=== PATIENT | female | born 1945 | race Native Hawaiian/Other Pacific Islander ===

== ENCOUNTER 2016-09-02 10:58 | Outpatient (CLI) | payer OTHER | END 2016-09-02 11:58 | disposition home or self-care (01) | LOC: RAD 10:58 | DX: M54.5 Low back pain (principal) ==

== ENCOUNTER 2016-11-05 02:00 | Observation (INO) | payer OTHER ==
[2016-11-05] VITALS (10 sets, daily range): BP systolic 114–183; BP diastolic 57–93; TEMP 97.8–98.7; Ht 162.6 cm; Wt 58.7 kg
[~2016-11-05] VITALS: Ht 162.6 cm; Wt 58.7 kg
[2016-11-05 02:33] LABS: PLATELET COUNT 361 K/uL (152-353)
[2016-11-05] MEDS ORDERED: OMEP20CA PO (02:36)
[2016-11-05] MEDS ORDERED: AMLO2.5T PO (02:37)
[2016-11-05] MEDS ORDERED: TRIA37.541 PO (02:37)
[2016-11-05] MEDS ORDERED: ESTR1TAB13 PO (02:38)
[2016-11-05] MEDS ORDERED: TRAM50TA PO (02:38)
[2016-11-05] MEDS ORDERED: METHO2.5 PO (02:39)
[2016-11-05] MEDS ORDERED: CYCL10TA35 PO (02:40)
[2016-11-05] MEDS ORDERED: CLON0.5T36 PO (02:40)
[2016-11-05] MEDS ORDERED: ADLT ASA LOW81 MG PO (02:41)
[2016-11-05] MEDS ORDERED: FOLI1TAB26 PO (02:41)
[2016-11-05] MEDS ORDERED: CETI10TA PO (02:42)
[2016-11-05] MEDS ORDERED: CALCIUM + D PO (02:43)
[2016-11-05] MEDS ORDERED: MULTIVITAMI1 PO (02:44)
[2016-11-05 10:47] LABS: PLATELET COUNT 341 K/uL (152-353)
[2016-11-05 11:28] LABS: POTASSIUM 3.8 mmol/L (3.6-5.2); SODIUM 142 mmol/L (136-145)
[2016-11-06] VITALS: BP 93/54; TEMP 97.7
[2016-11-06 04:00] VITALS: BP 98/55; TEMP 97.4
[2016-11-06 05:09] LABS: PLATELET COUNT 331 K/uL (152-353)
[2016-11-06 05:32] LABS: POTASSIUM 3.6 mmol/L (3.6-5.2); SODIUM 138 mmol/L (136-145)
[2016-11-06 08:00] VITALS: BP 93/49; TEMP 97.9
[2016-11-06 12:10] VITALS: BP 117/70; TEMP 97.6
[2016-11-06 16:18] VITALS: BP 121/73; TEMP 98.3
== END 2016-11-06 17:10 | disposition home or self-care (01) ==
LOC: ED 02:00 → MED/SURG 03:20
PROVIDERS: Emergency Medicine; ADMIT Emergency Medicine
DX: I48.0 Paroxysmal atrial fibrillation (principal); R07.89 Other chest pain; R00.2 Palpitations; I10 Essential (primary) hypertension; K21.9 Gastro-esophageal reflux disease without esophagitis; E87.6 Hypokalemia; E83.42 Hypomagnesemia
CPT/HCPCS: 36415; 80053; 82550; 83036; 83735; 83880; 84443; 84484; 85027; 85610; 85730; 93005; 94760; 96361; 96365; 96366; 96372; 96374; 99220; 99281; 99284; G0378; J1650; J2060; J2270; J3490

== ENCOUNTER 2016-11-11 07:58 | Outpatient (CLI) | payer OTHER ==
[~2016-11-11 07:58] MED LIST: ADLT ASA LOW81 MG PO; AMLO2.5T PO; CALCIUM + D PO; CETI10TA PO; CLON0.5T36 PO; CYCL10TA35 PO; ESTR1TAB13 PO; FOLI1TAB26 PO; METHO2.5 PO; MULTIVITAMI1 PO; OMEP20CA PO; TRAM50TA PO; TRIA37.541 PO
== END 2016-11-11 19:44 | disposition home or self-care (01) ==
LOC: NM 07:58
DX: I48.91 Unspecified atrial fibrillation (principal); I10 Essential (primary) hypertension
CPT/HCPCS: A9500

== ENCOUNTER 2016-11-19 09:15 | Outpatient (CLI) | payer OTHER ==
[2016-11-19 10:43] LABS: POTASSIUM 3.3 mmol/L (3.6-5.2)
== END 2016-11-19 10:30 | disposition home or self-care (01) ==
LOC: LABW 09:15
PROVIDERS: Internal Medicine Cardiovascular Disease
DX: I48.0 Paroxysmal atrial fibrillation (principal); Z79.899 Other long term (current) drug therapy; Z51.81 Encounter for therapeutic drug level monitoring
CPT/HCPCS: 36415; 80048; 80061

== ENCOUNTER 2017-02-14 11:32 | Outpatient (CLI) | payer OTHER | END 2017-02-14 12:35 | disposition home or self-care (01) | LOC: RAD 11:32 | DX: M25.511 Pain in right shoulder (principal) ==

== ENCOUNTER 2017-10-06 11:11 | Outpatient (CLI) | payer OTHER | END 2017-10-06 22:05 | disposition home or self-care (01) | LOC: RAD 11:11 | DX: M06.09 Rheumatoid arthritis without rheumatoid factor, multiple sites (principal); Z79.899 Other long term (current) drug therapy; Z51.81 Encounter for therapeutic drug level monitoring ==

== ENCOUNTER 2017-10-31 06:36 | Inpatient (IN) | payer OTHER ==
[~2017-10-31] VITALS: Ht 162.6 cm; Wt 58.7 kg
[2017-10-31] VITALS (37 sets, daily range): BP systolic 81–178; BP diastolic 53–104; TEMP 97.7–99; Ht 162.6 cm; Wt 58.7 kg
[2017-10-31 07:13] LABS: PLATELET COUNT 317 K/uL (152-353)
[2017-10-31 07:22] LABS: POTASSIUM 3.1 mmol/L (3.6-5.2)
[2017-10-31 07:58] LABS: PARTIAL THROMBOPLASTIN TIME 26.2 SECONDS (24.5-33.6)
[2017-10-31] MEDS ORDERED: CARTIA XT180 MG/24 PO (16:24)
[2017-10-31] MEDS ORDERED: CLOPIDOGREL75 MG PO (16:28)
[2017-10-31] MEDS ORDERED: TRAM50TA PO (16:29)
[2017-10-31] MEDS ORDERED: LORA10TA3 PO (16:30)
--- NOTE | 2017-10-31 17:06 | NUR ---
@ 1135 PT ARRIVED TO PCU BED #1 FROM ER, REPORT RECEIVED FROM CAMILA RN, IV TO LEFT AC CLEAN, DRY AND INTACT, CARDIZEM DRIP @ 10ML/HR TO KEEP PULSE LESS THAN 100BPM, IV TO RIGHT WRIST CLEAN DRY AND INTACT, INFUSING NORMAL SALINE @ 75ML/HR AND PARTIAL BAG OF ROCEPHIN THAT WAS STARTED IN ER. PT IS AWAKE, ALERT, AND RESPONSIVE TO ALL QUESTIONS, PT C/O PAIN TO RIGHT HIP AREA FROM FALL EARLIER THIS MORNING AT HOME, NO BRUISING NOTED TO RIGHT BUTTOCK/HIP AREA. APPLIED ELECTRODES TO PATIENT'S CHEST, HELPED PT GET COMFORTABLE IN BED, VITAL SIGNS DONE, WITHIN NORMAL LIMITS. WILL CONTINUE TO MONITOR.
[2017-11-01] VITALS (28 sets, daily range): BP systolic 102–140; BP diastolic 59–90; TEMP 99.2–100.3
--- NOTE | 2017-11-01 01:01 | NUR ---
[id number] ASSESSMENT COMPLETE. PT DENIES PAIN AT THIS TIME. CARDIZEM GTT IS AT 4 MG/ HR, PT HAS DONE WELL WITH THIS DOSAGE SINCE 170, I AM DECREASING IT TO CARDIZEM 3 MG PER HOUR. WILL MONITOR PT CLOSELY FOR CHANGES IN HR KEEP HR < 100, BP CHANGES , AND RHYTHM OF HEART, WHICH IS NOW SINUS RHYTHM. SH
--- NOTE | 2017-11-01 01:11 | NUR ---
10-01-171999 BLOOD DRAWN X 1 ATTEMPT, FROM RIGHT AC, FOR TROPONIN AND CPK FOR THE THIRD CE TEST. PT TOLERATED WELL. SH
--- NOTE | 2017-11-01 02:14 | NUR ---
10-01-17 2200 PT CONT TO DO WELL, NSR NOTED ON RESEARCH ASSISTANT PROFESSOR, HR REMAINS BELOW 100, HAS BEEN IN THE 60'S AND BP REMAINS AROUND THE SAME IT HAS BEEN RUNNING. CARDIZEM GTT TURNED DOWN FROM 3 MG / HR TO 2 MG/HR. WILL CONT TO MONITOR. SH
--- NOTE | 2017-11-01 02:23 | NUR ---
10-01-17 0707 PT UNABLE TO SLEEP AND ALSO, SAYS THAT HER THROAT IS SORE. NURSE CONTACTED DR. SIM IN THE ER FOR NEW ORDERS FOLLOWS. CLOROSEPTIC THROAT SPRAY AND BENEDRYL 25 MG PO FOR HS (PT SAYS SHE TAKES BENEDRYL TO HELP HER SLEEP AT HOME SOMETIMES). NURSE WILL CONT TO MONITOR. SH
--- NOTE | 2017-11-01 02:27 | NUR ---
10-01-[address] SIM ON TROPONIN LEVEL FOR PT. IT IS UP SLIGHTLY, SEE CHART/ LABS. ONLY NEW ORDER FOR PT IS TO OBTAIN AN EKG IN THE MORNING. SH
--- NOTE | 2017-11-01 02:29 | NUR ---
10-02-17 0200 PT CONT TO STAY IN NSR, HR < 100 AND SHE DENIES CHEST PAIN STILL. SHE DOES SAY THAT SHE HAS A HX OF RIGHT ROTATOR CUFF PAIN, HAS TO GET SHOTS IN IT ABOUT Q 6 MONTHS. SHE SAYS THAT HER PAIN IN HER ROTATOR CUFF AREA IS BETTER NOW THAN IT WAS PRIOR TO HER TRAMADOL. (PT SAYS THAT SHE TAKES TRAMADOL 50 MG TAB PO 3 X DAY , NOT 100 MG . CLARIFICATION ORDER WRITEN. SH
--- NOTE | 2017-11-01 02:41 | NUR ---
10-02-17 0245 PT CONT TO DO WELL, NSR NOTED, HR < 100 CARDIZEM GTT PLACED ON 1 MG/ HR. PT DENIES PAIN. SH
--- NOTE | 2017-11-01 03:52 | NUR ---
11-01-17 0355 PT REMAINS IN NSR, HR 66, NO DISTRESS NOTED. SHE IS RECEIVING CARDIZEM 1 MG / HR AT THIS TIME AND DOING WELL. EARLIER, PT ASSISTED TO BSC TO VOID LARGE AMOUNT OF URINE. PT PUT TOILET TISSUE INTO THE BSC, SO NURSE WAS UNABLE TO MEASURE. NO BRUISING NOTED ON RIGHT HIP AT THIS TIME. SHE POINTED TO THE AREA THAT IS SORE, WHICH IS ABOUT THE ISCHIAL SPINE ON RIGHT SIDE. NURSE WILL CONT TO ANDREY VIGIL
--- NOTE | 2017-11-01 06:40 | NUR ---
11-01-17 3887 EKG DONE BY RESPIRATORY DEPT, [facility], SHOWS NSR. SH
--- NOTE | 2017-11-01 06:41 | NUR ---
10-02-17 5414 PT EYES CLOSED, RESP EVEN, UNLABORED. NO DISTRESS NOTED. PT REMIANS IN NSR WITH CARDIZEM GTT AT 1 MG/HR. NURSE WILL CONT TO MONITOR PT. SH
--- NOTE | 2017-11-01 07:55 | NUR ---
SPOKE TO CAYLA ANROLD ABOUT PT'S COUGH AND ELEVATED TEMP. NEW ORDERS RECEIVED.
--- NOTE | 2017-11-01 08:05 | NUR ---
DAUGHTER CALLED TO SPEAK WITH PT.
[2017-11-01 08:18] LABS: PLATELET COUNT 303 K/uL (152-353)
[2017-11-01 08:20] LABS: POTASSIUM 3.1 mmol/L (3.6-5.2)
--- NOTE | 2017-11-01 08:40 | NUR ---
VISITOR AT BEDSIDE.
--- NOTE | 2017-11-01 09:13 | NUR ---
XRAY AT BEDSIDE.
--- NOTE | 2017-11-01 09:15 | NUR ---
CAYLA ARNOLD HERE TO EXAMINE PATIENT.
--- NOTE | 2017-11-01 12:03 | NUR ---
MERLYN FROM [facility] HERE TO TAKE PATIENT FOR VQ SCAN.
--- NOTE | 2017-11-01 13:00 | NUR ---
RETURNED FROM VQ SCAN VIA WHEELCHAIR. NAD NOTED. PLACED BACK ON FLUIDS AND MONITORS.
[2017-11-01] MEDS ORDERED: XARELTO20 MG PO (13:38)
[2017-11-01] MEDS ORDERED: METOPROLOL25 M1 PO (13:44)
--- NOTE | 2017-11-01 13:50 | NUR ---
FAMILY AND MOLD WORKER AT BEDSIDE.
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
== END 2017-11-01 16:27 | disposition home or self-care (01) | DRG 309 ==
LOC: ED 06:36 → ICU 10:30
PROVIDERS: Specialist; ADMIT Family Medicine
DX: I48.0 Paroxysmal atrial fibrillation (principal); E87.1 Hypo-osmolality and hyponatremia; I10 Essential (primary) hypertension; E78.4 Other hyperlipidemia; K21.9 Gastro-esophageal reflux disease without esophagitis; M15.8 Other polyosteoarthritis; D72.828 Other elevated white blood cell count; E87.8 Other disorders of electrolyte and fluid balance, not elsewhere classified; E87.6 Hypokalemia
CPT/HCPCS: 36415; 80053; 82550; 82553; 83735; 84100; 84484; 85027; 85379; 85610; 85730; 93005; 94760; 96361; 96365; 96372; 96375; 96376; 99285; A9540; A9567; J0696; J1650; J2060; J3490

== ENCOUNTER 2018-03-28 09:42 | Outpatient (CLI) | payer OTHER ==
[~2018-03-28 09:42] MED LIST changes: +CARTIA XT180 MG/24 PO; +CLOPIDOGREL75 MG PO; +LORA10TA3 PO; +METOPROLOL25 M1 PO; +XARELTO20 MG PO
[2018-03-28 09:59] LABS: PLATELET COUNT 364 K/uL (152-353)
[2018-03-28 10:09] LABS: POTASSIUM 3.5 mmol/L (3.6-5.2)
== END 2018-03-28 22:40 | disposition home or self-care (01) ==
LOC: LABW 09:42
DX: M06.09 Rheumatoid arthritis without rheumatoid factor, multiple sites (principal); M15.1 Heberden's nodes (with arthropathy); M15.2 Bouchard's nodes (with arthropathy); Z79.891 Long term (current) use of opiate analgesic
CPT/HCPCS: 36415; 80053; 85027; 86140

== ENCOUNTER 2018-06-26 10:35 | Outpatient (CLI) | payer OTHER | END 2018-06-26 20:24 | disposition home or self-care (01) | LOC: RAD 10:35 | DX: M06.09 Rheumatoid arthritis without rheumatoid factor, multiple sites (principal) ==

== ENCOUNTER 2018-07-24 09:54 | Outpatient (CLI) | payer OTHER | END 2018-07-24 20:50 | disposition home or self-care (01) | LOC: RAD 09:54 | DX: M85.89 Other specified disorders of bone density and structure, multiple sites (principal) ==

== ENCOUNTER 2018-10-16 11:32 | Outpatient (CLI) | payer OTHER | END 2018-10-16 19:29 | disposition home or self-care (01) | LOC: RAD 11:32 | DX: M25.519 Pain in unspecified shoulder (principal); M79.641 Pain in right hand ==

== ENCOUNTER 2018-12-18 10:56 | Outpatient (CLI) | payer OTHER | END 2018-12-18 23:37 | disposition home or self-care (01) | LOC: RAD 10:56 | DX: M06.09 Rheumatoid arthritis without rheumatoid factor, multiple sites (principal) ==

== ENCOUNTER 2019-03-19 10:26 | Outpatient (CLI) | payer OTHER | END 2019-03-19 19:48 | disposition home or self-care (01) | LOC: LABW 10:26 | DX: M06.09 Rheumatoid arthritis without rheumatoid factor, multiple sites (principal); M15.2 Bouchard's nodes (with arthropathy); Z79.899 Other long term (current) drug therapy | CPT/HCPCS: 36415; 85651; 86140 ==

== ENCOUNTER 2019-06-07 11:37 | Outpatient (CLI) | payer OTHER | END 2019-06-07 19:30 | disposition home or self-care (01) | LOC: LAB 11:37 | DX: J20.9 Acute bronchitis, unspecified (principal); R05 Cough | CPT/HCPCS: 87070; 87205 ==

== ENCOUNTER 2019-07-31 15:09 | Outpatient (CLI) | payer OTHER | END 2019-07-31 20:12 | disposition home or self-care (01) | LOC: RESP 15:09 | DX: R68.89 Other general symptoms and signs (principal); R07.89 Other chest pain; I10 Essential (primary) hypertension; I48.0 Paroxysmal atrial fibrillation; R01.2 Other cardiac sounds | CPT/HCPCS: 93306 ==

== ENCOUNTER 2019-08-07 09:06 | Outpatient (CLI) | payer OTHER ==
[~2019-08-07] VITALS: Ht 162.6 cm; Wt 59.4 kg
== END 2019-08-07 21:57 | disposition home or self-care (01) ==
LOC: NM 09:06
DX: R68.89 Other general symptoms and signs (principal); R07.89 Other chest pain; I10 Essential (primary) hypertension; I48.0 Paroxysmal atrial fibrillation; R01.2 Other cardiac sounds
CPT/HCPCS: A9500; J2785

== ENCOUNTER 2019-12-13 07:48 | Outpatient (CLI) | payer OTHER | END 2019-12-13 21:34 | disposition home or self-care (01) | LOC: LAB 07:48 | DX: Z20.828 Contact with and (suspected) exposure to other viral communicable diseases (principal) | CPT/HCPCS: 87635; G2023; U0002 ==

== ENCOUNTER 2020-01-18 11:03 | Outpatient (CLI) | payer OTHER | END 2020-01-18 20:00 | disposition home or self-care (01) | LOC: RAD 11:03 | DX: M25.551 Pain in right hip (principal) ==

== ENCOUNTER 2020-07-09 14:30 | Outpatient (CLI) | payer OTHER ==
[2020-07-09 15:27] LABS: PLATELET COUNT 309 K/uL (152-353)
[2020-07-09 15:37] LABS: POTASSIUM 3.2 mmol/L (3.6-5.2)
== END 2020-07-09 23:58 | disposition home or self-care (01) ==
LOC: LABW 14:30
PROVIDERS: ATTEND Internal Medicine
DX: I12.9 Hypertensive chronic kidney disease with stage 1 through stage 4 chronic kidney disease, or unspecified chronic kidney disease (principal); N18.30 Chronic kidney disease, stage 3 unspecified
CPT/HCPCS: 36415; 80048; 82040; 84100; 84550; 85027; 86225

== ENCOUNTER 2020-09-10 14:12 | Outpatient (CLI) | payer OTHER | END 2020-09-10 22:09 | disposition home or self-care (01) | LOC: RAD 14:12 | PROVIDERS: ATTEND Nurse Practitioner Family | DX: K21.9 Gastro-esophageal reflux disease without esophagitis (principal); M06.09 Rheumatoid arthritis without rheumatoid factor, multiple sites; M19.041 Primary osteoarthritis, right hand; M19.042 Primary osteoarthritis, left hand; Z79.899 Other long term (current) drug therapy ==

== ENCOUNTER 2020-12-29 08:44 | Outpatient (CLI) | payer OTHER | END 2020-12-29 21:20 | disposition home or self-care (01) | LOC: RAD 08:44 | PROVIDERS: ATTEND Internal Medicine Rheumatology | DX: M06.09 Rheumatoid arthritis without rheumatoid factor, multiple sites (principal); M70.61 Trochanteric bursitis, right hip; M85.89 Other specified disorders of bone density and structure, multiple sites; Z79.891 Long term (current) use of opiate analgesic; Z79.899 Other long term (current) drug therapy ==

== ENCOUNTER 2021-11-09 10:50 | Outpatient (CLI) | payer OTHER | END 2021-11-09 18:59 | disposition home or self-care (01) | LOC: RAD 10:50 | PROVIDERS: ATTEND Nurse Practitioner Family | DX: M06.09 Rheumatoid arthritis without rheumatoid factor, multiple sites (principal); M15.1 Heberden's nodes (with arthropathy); M79.671 Pain in right foot; M79.672 Pain in left foot; Z79.899 Other long term (current) drug therapy ==

== ENCOUNTER 2021-12-11 17:17 | Observation (INO) | payer OTHER ==
[2021-12-11] VITALS (8 sets, daily range): BP systolic 118–154; BP diastolic 56–83; TEMP 98–100.1; Ht 162.6 cm; Wt 56.7 kg
[~2021-12-11] VITALS: Ht 162.6 cm; Wt 56.7 kg
[2021-12-11 18:07] LABS: PLATELET COUNT 335 K/uL (152-353)
[2021-12-11 18:38] LABS: POTASSIUM 3.2 mmol/L (3.6-5.2)
[2021-12-11] MEDS ORDERED: LISI10TA11 PO (22:49)
[2021-12-11] MEDS ORDERED: ROSU10TA PO (22:51)
[2021-12-11] MEDS ORDERED: ASPIRIN 8181 MG PO (22:52)
[2021-12-11] MEDS ORDERED: CETI10TA PO (22:53)
[2021-12-11] MEDS ORDERED: TURMERI1 PO (22:55)
[2021-12-11] MEDS ORDERED: ESTROVE1 PO (22:55)
[2021-12-12 04:00] VITALS: BP 105/46; TEMP 99.2
[2021-12-12 05:10] LABS: POTASSIUM 3.9 mmol/L (3.6-5.2)
[2021-12-12 05:35] LABS: PLATELET COUNT 278 K/uL (152-353)
[2021-12-12 08:00] VITALS: BP 106/53; TEMP 98.6
[2021-12-12 12:00] VITALS: BP 138/66; TEMP 98.1
== END 2021-12-12 15:25 | disposition home or self-care (01) ==
LOC: ED 17:17 → MED/SURG 19:55
PROVIDERS: ADMIT Emergency Medicine; ATTEND Internal Medicine
DX: K52.89 Other specified noninfective gastroenteritis and colitis (principal); I10 Essential (primary) hypertension; E86.0 Dehydration; E87.8 Other disorders of electrolyte and fluid balance, not elsewhere classified; I48.91 Unspecified atrial fibrillation; E87.1 Hypo-osmolality and hyponatremia; E78.49 Other hyperlipidemia; M15.8 Other polyosteoarthritis; K21.9 Gastro-esophageal reflux disease without esophagitis; E83.42 Hypomagnesemia; D53.9 Nutritional anemia, unspecified
CPT/HCPCS: 36415; 80053; 81002; 83630; 83735; 85027; 87015; 87045; 87324; 87328; 87329; 87449; 87635; 87899; 96360; 96361; 96365; 96366; 96367; 96375; 99220; 99284; G0378; J2405; J3475; J3490; U0003

== ENCOUNTER 2022-05-27 19:25 | Emergency (ER) | payer OTHER ==
[~2022-05-27] VITALS: Ht 162.6 cm; Wt 59.0 kg
[~2022-05-27 19:25] MED LIST changes: +ASPIRIN 8181 MG PO; +ESTROVE1 PO; +LISI10TA11 PO; +ROSU10TA PO; +TURMERI1 PO
[2022-05-27 20:06] LABS: PLATELET COUNT 315 K/uL (152-353)
[2022-05-27 20:16] LABS: POTASSIUM 3.8 mmol/L (3.6-5.2)
[2022-05-27 20:27] LABS: PARTIAL THROMBOPLASTIN TIME 27.6 SECONDS (24.5-33.6)
[2022-05-27 22:20] VITALS: BP 144/82; TEMP 98.7
== END 2022-05-27 22:20 | disposition home or self-care (01) ==
LOC: ED 19:25
PROVIDERS: Emergency Medicine
DX: R00.2 Palpitations (principal); I10 Essential (primary) hypertension; I48.91 Unspecified atrial fibrillation; Z79.01 Long term (current) use of anticoagulants; R06.02 Shortness of breath
CPT/HCPCS: 36415; 80053; 83880; 84484; 85027; 85379; 85610; 85730; 93005; 99283

== ENCOUNTER 2022-12-17 09:47 | Outpatient (CLI) | payer OTHER | END 2022-12-17 19:11 | disposition home or self-care (01) | LOC: RAD 09:47 | PROVIDERS: ATTEND Nurse Practitioner Family | DX: E79.0 Hyperuricemia without signs of inflammatory arthritis and tophaceous disease (principal); M06.09 Rheumatoid arthritis without rheumatoid factor, multiple sites; M19.041 Primary osteoarthritis, right hand; M47.892 Other spondylosis, cervical region; Z79.899 Other long term (current) drug therapy ==

== ENCOUNTER 2023-01-18 09:06 | Outpatient (CLI) | payer OTHER | END 2023-01-18 20:10 | disposition home or self-care (01) | LOC: LABW 09:06 | PROVIDERS: ATTEND Nurse Practitioner Family | DX: R19.7 Diarrhea, unspecified (principal) | CPT/HCPCS: 82272; 82705; 83630; 87015; 87045; 87046; 87324; 87449; 87899 ==

== ENCOUNTER 2023-02-24 09:53 | Outpatient (CLI) | payer OTHER | END 2023-02-24 19:27 | disposition home or self-care (01) | LOC: RAD 09:53 | PROVIDERS: ATTEND Nurse Practitioner Family | DX: E55.9 Vitamin D deficiency, unspecified (principal); E79.0 Hyperuricemia without signs of inflammatory arthritis and tophaceous disease; M06.09 Rheumatoid arthritis without rheumatoid factor, multiple sites; Z79.891 Long term (current) use of opiate analgesic; Z79.899 Other long term (current) drug therapy; N95.8 Other specified menopausal and perimenopausal disorders ==

== ENCOUNTER 2023-04-05 10:28 | Outpatient (CLI) | payer OTHER ==
[2023-04-05 11:09] LABS: PLATELET COUNT 284 K/uL (152-353)
[2023-04-05 11:26] LABS: POTASSIUM 3.9 mmol/L (3.6-5.2)
== END 2023-04-05 19:02 | disposition home or self-care (01) ==
LOC: LABW 10:28
PROVIDERS: ATTEND Internal Medicine
DX: E55.9 Vitamin D deficiency, unspecified (principal); M06.09 Rheumatoid arthritis without rheumatoid factor, multiple sites; M85.89 Other specified disorders of bone density and structure, multiple sites; Z79.891 Long term (current) use of opiate analgesic; Z79.899 Other long term (current) drug therapy; N18.31 Chronic kidney disease, stage 3a; E11.9 Type 2 diabetes mellitus without complications; I12.9 Hypertensive chronic kidney disease with stage 1 through stage 4 chronic kidney disease, or unspecified chronic kidney disease
CPT/HCPCS: 36415; 80053; 80061; 82306; 83036; 84100; 84550; 85027; 85652; 86140